=== PATIENT | male | born 1995 | race Caucasian/White ===

== ENCOUNTER 2017-02-10 00:48 | Emergency (ER) | payer OTHER ==
[2017-02-10 01:39] VITALS: BP 140/86
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
== END 2017-02-10 03:45 | disposition home or self-care (01) ==
LOC: ED 00:48
DX: Z77.21 Contact with and (suspected) exposure to potentially hazardous body fluids (principal)
CPT/HCPCS: 36415; 86317; 86803; 87389; 99281; 99282